=== PATIENT | male | born 1950 | race Caucasian/White ===

== ENCOUNTER 2016-10-22 09:09 | Inpatient (IN) | payer OTHER ==
[~2016-10-22] VITALS: Ht 175.3 cm; Wt 158.0 kg
[~2016-10-22 09:09] MED LIST: ACID CONTROL150 MG PO; AMLODIPINE BESYL5 MG PO; ATORVASTATIN CA80 MG PO; ENALAPRIL MALEA20 MG PO; Flomax PO; GLUCOPHAGE850 MG PO; GLUCOTROL5 MG PO; HYDROCHLOROTHIA50 MG PO; Levaquin PO; Lipitor PO; Norvasc PO; Vasotec PO
[2016-10-22 10:48] LABS: HEMATOCRIT 43.5 % (38.0-50.0); MCH 30.2 PG (29.0-34.0); MCV 94.6 FL (86-99); PLATELET COUNT 307 K/uL (156-360); RBC DIS.WIDTH-SD 48.4 % (39-53); WHITE BLOOD COUNT 23.5 K/uL (4.1-10.2)
[2016-10-22 10:58] LABS: CHLORIDE 98 mEq/L (99-109); POTASSIUM 3.7 mEq/L (3.7-5.4); SODIUM 136 mEq/L (136-147)
[2016-10-22 11:00] LABS: GLUCOSE 179 mg/dL (70-99)
[2016-10-22 11:02] LABS: ANION GAP 11 MEQ/L (2-14)
[2016-10-22 11:04] LABS: GFR ESTIMATE (CALCULATED) > 59 mL/min/
[2016-10-22 11:05] LABS: UREA NITROGEN (BUN) 10 mg/dL (9-23)
[2016-10-22 11:09] LABS: TROP-I INTERPRETATION NEGATIVE; TROPONIN-I < 0.01 ng/mL (0.0-0.30)
[2016-10-22 11:33] LABS: ADD MIUA? YES; BILIRUBIN NEGATIVE; BLOOD NEGATIVE; COLOR AMBER ((YELLOW)); GLUCOSE (STRIP) 50; KETONES NEGATIVE; LEUKOCYTES LARGE; NITRITE NEGATIVE; PROTEIN (STRIP) 100; SPECIFIC GRAVITY 1.021 (1.000-1.030)
[2016-10-22 11:47] LABS: BACTERIA NONE SEEN /HPF; EPITHELIAL CELLS RARE /HPF; MUCUS 4+ /LPF; UCUL ADDED? YES; WHITE BLOOD CELLS TNTC /HPF (0-5)
[2016-10-22] MEDS ORDERED: LANTUS 10100 UNITS/ SC (14:16)
[2016-10-22] MEDS ORDERED: GLUCOTROL XL10 MG PO (14:17)
[2016-10-22] MEDS ORDERED: LASIX20 MG PO (14:18)
[2016-10-22] MEDS ORDERED: VASOTEC20 MG PO (14:19)
[2016-10-22] MEDS ORDERED: LIPITOR80 MG PO (14:19)
[2016-10-22] MEDS ORDERED: SYMBICORT60 INHALAT IH (14:20)
[2016-10-22] MEDS ORDERED: FLOMAX0.4 MG PO (14:20)
[2016-10-22 15:09] VITALS: BP 147/61
[2016-10-22 15:21] LABS: POINT-OF-CARE METER ID UU14162508
[2016-10-22 19:26] VITALS: BP 126/58
[2016-10-22 21:45] LABS: POINT-OF-CARE METER ID UU14162508
[2016-10-22 23:31] VITALS: BP 105/51
[2016-10-23 04:27] VITALS: BP 119/51
[2016-10-23 07:07] LABS: HEMATOCRIT 39.9 % (38.0-50.0); MCH 30.1 PG (29.0-34.0); MCHC 30.8 G/DL (30.0-36.0); MCV 97.6 FL (86-99); MEAN PLAT.VOLUME 10.1 uM^3 (9.0-12.4); PLATELET COUNT 298 K/uL (156-360); RBC DIS.WIDTH-CV 14.3 % (11.8-14.6); RBC DIS.WIDTH-SD 51.7 % (39-53); RED BLOOD COUNT 4.09 M/uL (4.00-5.50); WHITE BLOOD COUNT 22.4 K/uL (4.1-10.2)
[2016-10-23 07:27] VITALS: BP 131/59
[2016-10-23 07:27] LABS: ANION GAP 8 MEQ/L (2-14); CHLORIDE 100 MEQ/L (99-109); GFR ESTIMATE (CALCULATED) > 59 mL/min/; GLUCOSE 161 mg/dL (70-99); POTASSIUM 3.8 MEQ/L (3.7-5.4); SAMPLE HEMOLYSIS CHECK 0; SAMPLE ICTERIC CHECK 0; SAMPLE LIPEMIA CHECK 0; SODIUM 138 MEQ/L (136-147); UREA NITROGEN (BUN) 10 mg/dL (9-23)
[2016-10-23 10:04] LABS: INTERNAL CONTROL VALID? YES
[2016-10-23 10:36] LABS: BASE EXCESS 5.9 mEq/L (-3 to +3); BICARBONATE 32.1 mEq/L (22-26); CARBOXY HGB 2.8 % (0-5); METHEMOGLOBIN 1.7 % (0-1.5); PCO2 53 mm Hg (35-45); PO2 52 mm Hg (80-100); pH 7.39 (7.35-7.45)
[2016-10-23 10:37] LABS: COMMENTS - BLOOD GASES A+C+; DEVICE NC; O2 FLOW 2 L/MIN; SITE RR; TOTAL RESP RATE 24 resp/min
[2016-10-23 11:28] VITALS: BP 101/47
[2016-10-23 15:54] VITALS: BP 129/58
[2016-10-23 20:50] VITALS: BP 112/62
[2016-10-23 23:46] VITALS: BP 136/63
[2016-10-24 04:37] VITALS: BP 119/54
[2016-10-24 07:05] VITALS: BP 123/56
[2016-10-24 08:04] LABS: EOSINOPHIL (%) 0.7 % (0-5); EOSINOPHIL COUNT 0.1 K/uL (0-0.3); IMMATURE GRANULOCYTE (%) 0.4 % (0.0-0.7); IMMATURE GRANULOCYTE COUNT 0.1 K/uL; INSTRUMENT ABS NEUTROPHIL CT 11.1 K/uL; LYMPHOCYTE COUNT 1.5 K/uL (1.0-2.8); MCH 29.8 PG (29.0-34.0); MCHC 30.5 G/DL (30.0-36.0); MCV 97.9 FL (86-99); MEAN PLAT.VOLUME 10.2 uM^3 (9.0-12.4); MONOCYTE (%) 6.6 % (3-12); MONOCYTE COUNT 0.9 K/uL (0-0.8); NEUTROPHIL (%) 81.3 % (45-76); NEUTROPHIL COUNT 11.1 K/uL (1.8-6.4); PLATELET COUNT 307 K/uL (156-360); RBC DIS.WIDTH-CV 14.1 % (11.8-14.6); RBC DIS.WIDTH-SD 51.4 % (39-53); RED BLOOD COUNT 4.29 M/uL (4.00-5.50); WHITE BLOOD COUNT 13.7 K/uL (4.1-10.2)
[2016-10-24 08:27] LABS: ANION GAP 8 MEQ/L (2-14); CHLORIDE 102 MEQ/L (99-109); MAGNESIUM 2.1 mg/dl (1.3-2.7); POTASSIUM 4.2 MEQ/L (3.7-5.4); SAMPLE HEMOLYSIS CHECK 0; SAMPLE ICTERIC CHECK 0; SAMPLE LIPEMIA CHECK 0; SODIUM 140 MEQ/L (136-147)
[2016-10-24 08:32] LABS: GFR ESTIMATE (CALCULATED) > 59 mL/min/; GLUCOSE 168 mg/dL (70-99); UREA NITROGEN (BUN) 10 mg/dL (9-23)
[2016-10-24 12:36] VITALS: BP 122/58
[2016-10-24 15:54] VITALS: BP 131/58
[2016-10-24 19:36] VITALS: BP 133/60
[2016-10-25] VITALS (7 sets, daily range): BP systolic 124–153; BP diastolic 57–68
[2016-10-25 06:31] LABS: POINT-OF-CARE METER ID UU14208750
[2016-10-25 11:42] LABS: POINT-OF-CARE METER ID UU14208750
[2016-10-25 16:28] LABS: POINT-OF-CARE METER ID UU14208750
[2016-10-26 07:45] VITALS: BP 136/61
[2016-10-26] MEDS ORDERED: CEFDINIR300 MG PO (12:16)
== END 2016-10-26 13:22 | disposition home or self-care (01) | DRG 193 ==
LOC: EME 09:09 → EDOF 13:36 → 2EAST 13:36
PROVIDERS: Emergency Medicine; Hospitalist; Internal Medicine; Student in an Organized Health Care Education/Training Program
DX: J18.0 Bronchopneumonia, unspecified organism (principal); J96.01 Acute respiratory failure with hypoxia; N39.0 Urinary tract infection, site not specified; B96.20 Unspecified Escherichia coli [E. coli] as the cause of diseases classified elsewhere; R35.0 Frequency of micturition; R39.15 Urgency of urination; E11.65 Type 2 diabetes mellitus with hyperglycemia; I11.0 Hypertensive heart disease with heart failure; I50.9 Heart failure, unspecified; E78.5 Hyperlipidemia, unspecified; J44.0 Chronic obstructive pulmonary disease with (acute) lower respiratory infection; N40.0 Benign prostatic hyperplasia without lower urinary tract symptoms; E66.01 Morbid (severe) obesity due to excess calories; Z88.0 Allergy status to penicillin; Z68.43 Body mass index [BMI] 50.0-59.9, adult; Z79.4 Long term (current) use of insulin; Z79.51 Long term (current) use of inhaled steroids; Z79.84 Long term (current) use of oral hypoglycemic drugs; Z87.891 Personal history of nicotine dependence; Z82.49 Family history of ischemic heart disease and other diseases of the circulatory system; Z83.3 Family history of diabetes mellitus
CPT/HCPCS: 36600; 71020; 71275; 80048; 81003; 82565; 82803; 82948; 83735; 83880; 84100; 84484; 84520; 85025; 85027; 87040; 87077; 87086; 87186; 87449; 93005; 94640; 94640 76; 94760; 94799; 99202; 99281; 99285; J0456; J0696; J1644; J1815; J7030; J7050

== ENCOUNTER 2017-08-11 14:35 | Emergency (ER) | payer OTHER ==
[~2017-08-11] VITALS: Ht 172.7 cm; Wt 156.1 kg
[~2017-08-11 14:35] MED LIST changes: +CEFDINIR300 MG PO; +FLOMAX0.4 MG PO; +GLUCOTROL XL10 MG PO; +LANTUS 10100 UNITS/ SC; +LASIX20 MG PO; +LIPITOR80 MG PO; +SYMBICORT60 INHALAT IH; +VASOTEC20 MG PO
[2017-08-11 15:10] LABS: HEMATOCRIT 44.8 % (38.0-50.0); HEMOGLOBIN 14.4 G/DL (12.5-16.6); MCH 30.9 PG (29.0-34.0); MCHC 32.1 G/DL (30.0-36.0); MCV 96.1 FL (86-99); PLATELET COUNT 350 K/uL (156-360); RBC DIS.WIDTH-CV 13.5 % (11.8-14.6); RBC DIS.WIDTH-SD 48.2 % (39-53); RED BLOOD COUNT 4.66 M/uL (4.00-5.50); WHITE BLOOD COUNT 13.1 K/uL (4.1-10.2)
[2017-08-11 15:18] LABS: CHLORIDE 103 mEq/L (99-109); POTASSIUM 3.9 mEq/L (3.7-5.4); SODIUM 141 mEq/L (136-147)
[2017-08-11 15:20] LABS: GLUCOSE 181 mg/dL (70-99)
[2017-08-11 15:24] LABS: CREATININE 0.7 mg/dL (0.6-1.3); GFR ESTIMATE (CALCULATED) > 59 mL/min/ (58.99-99999)
[2017-08-11 15:25] LABS: UREA NITROGEN (BUN) 12 mg/dL (9-23)
[2017-08-11 16:08] LABS: TROP-I INTERPRETATION NEGATIVE; TROPONIN-I < 0.01 ng/mL (0.0-0.30)
[2017-08-11] MEDS ORDERED: AZITHROMYCIN250 MG PO (18:29)
[2017-08-11 18:35] VITALS: BP 130/87
== END 2017-08-11 18:35 | disposition home or self-care (01) ==
LOC: EME 14:35
DX: J44.1 Chronic obstructive pulmonary disease with (acute) exacerbation (principal); Z87.01 Personal history of pneumonia (recurrent); I50.9 Heart failure, unspecified; I11.0 Hypertensive heart disease with heart failure; E78.5 Hyperlipidemia, unspecified; E11.9 Type 2 diabetes mellitus without complications; Z79.4 Long term (current) use of insulin; Z88.0 Allergy status to penicillin; Z87.891 Personal history of nicotine dependence
CPT/HCPCS: 70450; 71046; 80048; 82948; 83880; 84484; 85027; 93005; 94640; 99281; 99285; J2930